=== PATIENT | male | born 1960 | race Caucasian/White ===

== ENCOUNTER 2018-04-17 09:43 | Inpatient (IN) | payer OTHER ==
[~2018-04-17] VITALS: Ht 180.3 cm; Wt 97.5 kg
[2018-04-17] MEDS ORDERED: DICLOFENAC POTA50 MG PO (10:27)
[2018-04-17] MEDS ORDERED: LOTREL 10-40 M1 EACH PO (10:27)
== END 2018-04-24 17:06 | DRG 470 ==
LOC: SURH 04-22 09:07 → O/R 04-22 09:49 → SURH 04-22 09:49
PROVIDERS: Orthopaedic Surgery
PROC: 0SRD0J9 Replacement of Left Knee Joint with Synthetic Substitute, Cemented, Open Approach (ICD-10-PCS; principal; 2018-04-22 10:30)
DX: M17.12 Unilateral primary osteoarthritis, left knee (principal); D62 Acute posthemorrhagic anemia; I10 Essential (primary) hypertension; E78.2 Mixed hyperlipidemia

== ENCOUNTER 2018-12-07 14:32 | Emergency (ER) | payer OTHER ==
[~2018-12-07] VITALS: Ht 180.3 cm; Wt 99.8 kg
[~2018-12-07 14:32] MED LIST: DICLOFENAC POTA50 MG PO; LOTREL 10-40 M1 EACH PO
== END 2018-12-07 18:50 | disposition home or self-care (01) ==
LOC: ER 14:32 → CPU-OBS 15:03 → ER 18:50
DX: R07.89 Other chest pain (principal)
CPT/HCPCS: G0378; G0379; 93005